=== PATIENT | female | born 1955 | race Two or more races ===

== ENCOUNTER 2023-02-26 03:53 | Inpatient (IN) | payer MEDICARE, MEDICAID ==
[~2023-02-26] VITALS: Ht 152.4 cm; Wt 76.5 kg
[2023-02-26 05:10] LABS: Basophils # (auto) 0 10 ^3/uL (0-0.2); Basophils % (auto) 0.3 % (0.0-2.0); Eosinophils # (auto) 0 10 ^3/uL (0-0.8); Eosinophils % (auto) 0.2 % (0.0-7.0); Hematocrit 42.7 % (36.0-46.0); Hemoglobin 14.4 g/dL (12.2-16.2); Lymphocytes # (auto) 0.7 10 ^3/uL (0.4-5.4); Lymphocytes % (auto) 8.2 % (10.0-50.0); Mean Corpuscular Hemoglobin 30.3 pg (28.0-32.0); Mean Corpuscular Hgb Conc. 33.7 g/dL (32.0-36.0); Mean Corpuscular Volume 89.8 fL (80.0-100.0); Monocytes # (auto) 0.1 10 ^3/uL (0-1.3); Monocytes % (auto) 0.6 % (0.0-12.0); Neutrophils # (auto) 7.9 10 ^3/uL (1.6-8.6); Neutrophils % (auto) 90.7 % (37.0-80.0); Nucleated Red Blood Cells % 0.1 %; Red Blood Cells 4.76 10^6/uL (4.0-5.20); Red Cell Distribution Width 13.2 % (11.8-14.3); White Blood Cell 8.7 10^3/uL (4.4-10.8)
[2023-02-26 05:24] LABS: Alanine Aminotransferase 29 U/L (7-40); Albumin 4.5 g/dL (3.2-4.8); Alkaline Phosphatase 82 U/L (46-116); Anion Gap 7.2 (5-15); Aspartate Aminotransferase 24 U/L (13-40); BUN/Creatinine Ratio 16.3 (10.0-20.0); Blood Urea Nitrogen 14 mg/dL (9-23); Calcium 9.6 mg/dL (8.5-10.1); Carbon Dioxide 26.8 mmol/L (20-30); Chloride 108 mmol/L (98-107); Glucose 149 mg/dL (74-106); Potassium 4.1 mmol/L (3.5-5.1); Sodium 142 mmol/L (136-145)
[2023-02-26 05:25] LABS: Total Protein 7.5 g/dL (5.7-8.2)
[2023-02-26] MEDS ORDERED: SODIUM CHLORIDE 0.9% 1,000 ML IV ONE ×2 (07:00)
[2023-02-26 07:44] LABS: Lactic Acid w/Reflex 2.2 mmol/L (0.4-2.0)
[2023-02-26] MEDS ORDERED: KETOROLAC TROMETH 30 MG/ML 1ML VIAL IV ONE (08:15)
[2023-02-26] MEDS ORDERED: MORPHINE SULFATE INJ 2 MG/ml SYRG IV PRN (10:00)
[2023-02-26] MEDS ORDERED: ONDANSETRON HCL 4 MG/2 ML VIAL IV PRN (10:00)
[2023-02-26] MEDS ORDERED: DOCUSATE SOD 100 MG CAP PO PRN (10:00)
[2023-02-26] MEDS: SODIUM CHLORIDE 0.9% 1,000 ML IV SCH ×2 (11:15→18:00)
[2023-02-26] MEDS ORDERED: MANNITOL FTV 25% 12.5 GM/50 ML 50 ML IV ONE (12:00)
[2023-02-26] MEDS: KETOROLAC TROMETH 30 MG/ML 1ML VIAL IV PRN (14:34)
[2023-02-26 17:30] VITALS: BP 89/40; PULSE 90; RESP 21; TEMP 98.5; O2SAT 98
[2023-02-26] MEDS: TAMSULOSIN HYDROCHLORIDE 0.4 MG CAP PO SCH (17:57)
[2023-02-26 18:30] VITALS: BP 89/40; PULSE 90; RESP 21; TEMP 98.5; O2SAT 98
[2023-02-26 20:00] VITALS: PULSE 92; RESP 19; O2SAT 94
[2023-02-26 22:00] VITALS: BP 95/41; PULSE 92; RESP 21; TEMP 99.8; O2SAT 94
[2023-02-27 05:00] VITALS: BP 111/55; PULSE 74; RESP 17; TEMP 98.9; O2SAT 96
[2023-02-27] MEDS: SODIUM CHLORIDE 0.9% 1,000 ML IV SCH ×3 (05:25→17:15)
[2023-02-27 06:58] LABS: Alanine Aminotransferase 21 U/L (7-40); Albumin 3.4 g/dL (3.2-4.8); Alkaline Phosphatase 68 U/L (46-116); Anion Gap 6.2 (5-15); BUN/Creatinine Ratio 22.5 (10.0-20.0); Blood Urea Nitrogen 20 mg/dL (9-23); Calcium 8.1 mg/dL (8.7-10.4); Carbon Dioxide 23.8 mmol/L (20-30); Chloride 111 mmol/L (98-107); Glucose 106 mg/dL (74-106); Potassium 4.5 mmol/L (3.5-5.1); Sodium 141 mmol/L (136-145)
[2023-02-27 06:59] LABS: Aspartate Aminotransferase 21 U/L (13-40); Bilirubin, Total 0.7 mg/dL (0.2-1.0); Total Protein 5.7 g/dL (5.7-8.2)
[2023-02-27 08:00] VITALS: BP 108/53; PULSE 72; RESP 18; TEMP 97.7; O2SAT 96
[2023-02-27 08:40] LABS: Mean Corpuscular Hemoglobin 29.6 pg (28.0-32.0)
[2023-02-27 08:43] LABS: Hematocrit 36.6 % (36.0-46.0); Hemoglobin 12.1 g/dL (12.2-16.2); Mean Corpuscular Hgb Conc. 33.1 g/dL (32.0-36.0); Mean Corpuscular Volume 89.3 fL (80.0-100.0); Red Cell Distribution Width 13.2 % (11.8-14.3)
[2023-02-27 08:57] LABS: Basophils % (manual) 0 (0.0-2.0); Blast Cells 0; Eosinophils % (manual) 0 (0-7); Metamyelocytes % 0; Myelocytes % 0; Promyelocytes % 0; Reactive Lymphocytes 0; White Blood Cell 44.3 10^3/uL (4.4-10.8)
[2023-02-27 09:00] VITALS: BP 108/53; PULSE 72; RESP 18; TEMP 97.7; O2SAT 96
[2023-02-27] MEDS: cefTRIAXone 1GM/50ML D5W 50 ML IV SCH (09:27)
[2023-02-27 11:46] LABS: Band Neutrophils % (manual) 15; Lymphocytes % (manual) 10 (10.0-50.0); Monocytes % (manual) 5 (0-12)
[2023-02-27 11:47] LABS: Platelet Estimate Adequate
[2023-02-27 13:00] VITALS: BP 103/55; PULSE 77; RESP 18; TEMP 98.5; O2SAT 96
[2023-02-27 13:40] LABS: Urine Bacteria FEW /hpf (None Seen); Urine Blood 2+ /uL (Negative); Urine Clarity HAZY (Clear); Urine Color Yellow (Yellow); Urine Mucus FEW (None Seen); Urine Protein, UAD 1+ (Negative); Urine Specific Gravity 1.019 (1.001-1.035); Urine Urobilinogen Normal (Negative); Urine WBC 123 /hpf (0 - 5); Urine pH 5.5 (5.0-8.0)
[2023-02-27 17:00] VITALS: BP 110/54; PULSE 79; RESP 16; TEMP 98.1; O2SAT 94
[2023-02-27] MEDS: TAMSULOSIN HYDROCHLORIDE 0.4 MG CAP PO SCH (17:20)
[2023-02-27] MEDS: KETOROLAC TROMETH 30 MG/ML 1ML VIAL IV PRN (17:21)
[2023-02-27 22:00] VITALS: BP 116/56; PULSE 74; RESP 16; TEMP 98; O2SAT 94
[2023-02-28] MEDS: SODIUM CHLORIDE 0.9% 1,000 ML IV SCH ×3 (03:00→20:20)
[2023-02-28 05:00] VITALS: BP 108/66; PULSE 71; RESP 19; TEMP 97.6; O2SAT 95
[2023-02-28] MEDS: KETOROLAC TROMETH 30 MG/ML 1ML VIAL IV PRN (05:37)
[2023-02-28 08:20] VITALS: BP 120/63; PULSE 69; RESP 16; TEMP 98.1
[2023-02-28 08:30] LABS: Hematocrit 35.7 % (36.0-46.0); Hemoglobin 11.8 g/dL (12.2-16.2); Mean Corpuscular Hemoglobin 29.1 pg (28.0-32.0)
[2023-02-28 08:34] LABS: Mean Corpuscular Volume 88.3 fL (80.0-100.0); Red Blood Cells 4.04 10^6/uL (4.0-5.20); Red Cell Distribution Width 13.2 % (11.8-14.3)
[2023-02-28 08:35] LABS: Calcium 8.2 mg/dL (8.5-10.1); Chloride 112 mmol/L (98-107); Potassium 4.2 mmol/L (3.5-5.1); Sodium 140 mmol/L (136-145)
[2023-02-28 08:41] LABS: Blood Urea Nitrogen 15 mg/dL (9-23); Glucose 84 mg/dL (74-106)
[2023-02-28 08:47] LABS: White Blood Cell 32.2 10^3/uL (4.4-10.8)
[2023-02-28 08:48] LABS: Basophils % (manual) 0 (0.0-2.0); Blast Cells 0; Eosinophils % (manual) 0 (0-7); Metamyelocytes % 0; Myelocytes % 0; Promyelocytes % 0; Reactive Lymphocytes 0
[2023-02-28 09:00] VITALS: BP 120/63; PULSE 69; RESP 16; TEMP 98.1; O2SAT 95
[2023-02-28] MEDS: cefTRIAXone 1GM/50ML D5W 50 ML IV SCH (09:17)
[2023-02-28 11:32] LABS: Band Neutrophils % (manual) 9; Lymphocytes % (manual) 7 (10.0-50.0); Monocytes % (manual) 1 (0-12)
[2023-02-28 11:33] LABS: Platelet Estimate Adequate
[2023-02-28 13:00] VITALS: BP 129/67; PULSE 71; RESP 18; TEMP 98; O2SAT 96
[2023-02-28 17:00] VITALS: BP 152/79; PULSE 67; RESP 20; TEMP 98.1; O2SAT 96
[2023-02-28] MEDS: TAMSULOSIN HYDROCHLORIDE 0.4 MG CAP PO SCH (18:33)
[2023-02-28 22:00] VITALS: BP 154/73; PULSE 68; RESP 18; TEMP 98.4; O2SAT 95
[2023-03-01 05:00] VITALS: BP 112/89; PULSE 64; RESP 19; TEMP 98.5; O2SAT 97
[2023-03-01] MEDS: SODIUM CHLORIDE 0.9% 1,000 ML IV SCH ×2 (05:31→15:27)
[2023-03-01 09:00] VITALS: BP 147/67; PULSE 65; RESP 14; TEMP 98.6; O2SAT 99
[2023-03-01] MEDS: cefTRIAXone 1GM/50ML D5W 50 ML IV SCH (09:28)
[2023-03-01] MEDS ORDERED: TAMS-35 PO (10:01)
[2023-03-01] MEDS ORDERED: CIPR-173 PO (10:01)
[2023-03-01 13:00] VITALS: BP 148/72; PULSE 61; RESP 16; TEMP 97.8; O2SAT 97
== END 2023-03-01 15:20 | disposition home or self-care (01) | DRG 690 ==
LOC: EDBD 03:53 → ER 03:53 → OVERFLOW 10:03 → CENTRAL 17:46
PROVIDERS: ADMIT Nurse Practitioner Family; ATTEND Family Medicine
DX: N13.6 Pyonephrosis (principal); R65.10 Systemic inflammatory response syndrome (SIRS) of non-infectious origin without acute organ dysfunction; I10 Essential (primary) hypertension; E86.0 Dehydration; K76.0 Fatty (change of) liver, not elsewhere classified; K57.30 Diverticulosis of large intestine without perforation or abscess without bleeding; K82.8 Other specified diseases of gallbladder; M81.0 Age-related osteoporosis without current pathological fracture; D72.829 Elevated white blood cell count, unspecified; Z80.0 Family history of malignant neoplasm of digestive organs; Z90.710 Acquired absence of both cervix and uterus; Z80.1 Family history of malignant neoplasm of trachea, bronchus and lung
CPT/HCPCS: 36415; 74018; 74176; 80048; 80053; 81001; 83605; 83690; 83735; 84484; 85007; 85025; 85027; 87040; 87086; 96361; 96374; 96375; 96376; G0378; J0696; J1885; J2405

== ENCOUNTER 2023-03-26 05:45 | Inpatient (IN) | payer MEDICARE, MEDICAID ==
[~2023-03-26] VITALS: Ht 152.4 cm; Wt 68.2 kg
[~2023-03-26 05:45] MED LIST: CIPR-173 PO; TAMS-35 PO
[2023-03-26] MEDS ORDERED: ACETAMINOPHEN 325 MG TAB PO ONE (06:00)
[2023-03-26] MEDS ORDERED: MORPHINE SULFATE INJ 2 MG/ml SYRG IV ONE (07:30)
[2023-03-26] MEDS ORDERED: ONDANSETRON HCL 4 MG/2 ML VIAL IV ONE (07:30)
[2023-03-26] MEDS ORDERED: SODIUM CHLORIDE 0.9% 1,000 ML IV ONE ×2 (07:30→10:15)
[2023-03-26 07:31] LABS: Alanine Aminotransferase 70 U/L (7-40); Albumin 4.7 g/dL (3.2-4.8); Alkaline Phosphatase 81 U/L (46-116); Anion Gap 8 (5-15); Aspartate Aminotransferase 70 U/L (13-40); BUN/Creatinine Ratio 15.3 (10.0-20.0); Blood Urea Nitrogen 18 mg/dL (9-23); Calcium 9.2 mg/dL (8.7-10.4); Carbon Dioxide 23 mmol/L (20-30); Chloride 104 mmol/L (98-107); Glucose 145 mg/dL (74-106); Sodium 135 mmol/L (136-145)
[2023-03-26 07:32] LABS: Bilirubin, Total 1.5 mg/dL (0.2-1.0); Lactic Acid w/Reflex 2.4 mmol/L (0.4-2.0); Total Protein 7.4 g/dL (5.7-8.2)
[2023-03-26 07:33] LABS: Urine Bacteria MANY /hpf (None Seen); Urine Blood 3+ /uL (Negative); Urine Clarity CLOUDY (Clear); Urine Color Yellow (Yellow); Urine Mucus FEW (None Seen); Urine Protein, UAD 2+ (Negative); Urine Specific Gravity 1.019 (1.001-1.035); Urine Urobilinogen Normal (Negative); Urine WBC 903 /hpf (0 - 5); Urine WBC Clumps PRESENT /hpf (None Seen); Urine pH 5.5 (5.0-8.0)
[2023-03-26] MEDS ORDERED: cefTRIAXone 1GM/50ML D5W 50 ML IV ONE (07:45)
[2023-03-26 08:00] LABS: Basophils # (auto) 0 10 ^3/uL (0-0.2); Basophils % (auto) 0.2 % (0.0-2.0); Eosinophils # (auto) 0 10 ^3/uL (0-0.8); Hemoglobin 13.6 g/dL (12.2-16.2); Lymphocytes # (auto) 0.6 10 ^3/uL (0.4-5.4); Lymphocytes % (auto) 2.8 % (10.0-50.0); Mean Corpuscular Hemoglobin 29.2 pg (28.0-32.0); Mean Corpuscular Hgb Conc. 33.1 g/dL (32.0-36.0); Mean Corpuscular Volume 88.1 fL (80.0-100.0); Monocytes # (auto) 0.5 10 ^3/uL (0-1.3); Monocytes % (auto) 2.4 % (0.0-12.0); Neutrophils % (auto) 94.6 % (37.0-80.0); Red Blood Cells 4.66 10^6/uL (4.0-5.20); White Blood Cell 20.1 10^3/uL (4.4-10.8)
[2023-03-26] MEDS ORDERED: DOCUSATE SOD 100 MG CAP PO PRN (11:15)
[2023-03-26] MEDS ORDERED: MORPHINE SULFATE INJ 2 MG/ml SYRG IV PRN (11:15)
[2023-03-26] MEDS ORDERED: HYDROcodone-ACET 5/325MG TAB PO PRN (11:15)
[2023-03-26] MEDS ORDERED: ONDANSETRON HCL 4 MG/2 ML VIAL IV PRN (11:15)
[2023-03-26] MEDS ORDERED: LOS25T PO (11:18)
[2023-03-26] MEDS ORDERED: MANNITOL FTV 25% 12.5 GM/50 ML 50 ML IV ONE (13:15)
[2023-03-26] MEDS: SODIUM CHLOR 0.9% PF (SALINE LOCK) 10ML VIAL/SYR IV SCH ×2 (14:37→22:00)
[2023-03-26 20:00] VITALS: PULSE 78; RESP 17; O2SAT 95
[2023-03-26] MEDS ORDERED: PIPERACILLIN-TAZOB 3.375GM 100 ML IV ONE (21:45)
[2023-03-27] VITALS (7 sets, daily range): BP systolic 116–135; BP diastolic 54–65; PULSE 70–76; RESP 12–20; TEMP 98.3–98.9; O2SAT 95–96
[2023-03-27] MEDS: SODIUM CHLOR 0.9% PF (SALINE LOCK) 10ML VIAL/SYR IV SCH ×3 (05:44→22:00)
[2023-03-27] MEDS: PIPERACILLIN-TAZOB 3.375GM 100 ML IV SCH ×3 (05:44→21:58)
[2023-03-27 05:46] LABS: Basophils # (auto) 0 10 ^3/uL (0-0.2); Basophils % (auto) 0.2 % (0.0-2.0); Eosinophils # (auto) 0 10 ^3/uL (0-0.8); Eosinophils % (auto) 0.1 % (0.0-7.0); Hematocrit 34.7 % (36.0-46.0); Hemoglobin 11.6 g/dL (12.2-16.2); Lymphocytes # (auto) 0.9 10 ^3/uL (0.4-5.4); Lymphocytes % (auto) 5.2 % (10.0-50.0); Mean Corpuscular Hemoglobin 29.3 pg (28.0-32.0); Mean Corpuscular Hgb Conc. 33.4 g/dL (32.0-36.0); Mean Corpuscular Volume 87.8 fL (80.0-100.0); Monocytes # (auto) 1.2 10 ^3/uL (0-1.3); Neutrophils # (auto) 14.8 10 ^3/uL (1.6-8.6); Neutrophils % (auto) 87.5 % (37.0-80.0); Red Blood Cells 3.95 10^6/uL (4.0-5.20); Red Cell Distribution Width 12.9 % (11.8-14.3); White Blood Cell 16.9 10^3/uL (4.4-10.8)
[2023-03-27 06:05] LABS: Alanine Aminotransferase 42 U/L (7-40); Albumin 3.4 g/dL (3.2-4.8); Alkaline Phosphatase 77 U/L (46-116); Anion Gap 6 (5-15); Aspartate Aminotransferase 25 U/L (13-40); BUN/Creatinine Ratio 14.1 (10.0-20.0); Blood Urea Nitrogen 11 mg/dL (9-23); Calcium 8.3 mg/dL (8.7-10.4); Carbon Dioxide 24 mmol/L (20-30); Chloride 106 mmol/L (98-107); Glucose 127 mg/dL (74-106); Potassium 3.6 mmol/L (3.5-5.1); Sodium 136 mmol/L (136-145)
[2023-03-27 06:06] LABS: Bilirubin, Total 0.8 mg/dL (0.2-1.0); Total Protein 6.1 g/dL (5.7-8.2)
[2023-03-27] MEDS ORDERED: cefTRIAXone 1GM/50ML D5W 50 ML IV SCH (09:00)
[2023-03-27] MEDS: LOSARTAN POTASSIUM 25 MG TAB PO SCH (10:41)
[2023-03-27] MEDS: TAMSULOSIN HYDROCHLORIDE 0.4 MG CAP PO SCH (10:41)
[2023-03-28 05:00] VITALS: BP 112/65; PULSE 69; RESP 18; TEMP 98.3; O2SAT 96
[2023-03-28] MEDS: PIPERACILLIN-TAZOB 3.375GM 100 ML IV SCH ×3 (05:21→21:49)
[2023-03-28 08:10] VITALS: BP 142/60; PULSE 65; RESP 18; TEMP 98.4; O2SAT 97
[2023-03-28 08:15] VITALS: BP 142/60; PULSE 65; RESP 18; TEMP 98.4
[2023-03-28] MEDS: TAMSULOSIN HYDROCHLORIDE 0.4 MG CAP PO SCH (09:57)
[2023-03-28] MEDS: SODIUM CHLOR 0.9% PF (SALINE LOCK) 10ML VIAL/SYR IV SCH ×3 (09:57→21:50)
[2023-03-28] MEDS: LOSARTAN POTASSIUM 25 MG TAB PO SCH (09:57)
[2023-03-28 11:19] LABS: Basophils # (auto) 0 10 ^3/uL (0-0.2); Basophils % (auto) 0.2 % (0.0-2.0); Eosinophils # (auto) 0.2 10 ^3/uL (0-0.8); Lymphocytes # (auto) 1.1 10 ^3/uL (0.4-5.4); Lymphocytes % (auto) 11.1 % (10.0-50.0); Mean Corpuscular Hemoglobin 29.8 pg (28.0-32.0); Mean Corpuscular Hgb Conc. 34.3 g/dL (32.0-36.0); Mean Corpuscular Volume 86.8 fL (80.0-100.0); Monocytes # (auto) 1.1 10 ^3/uL (0-1.3); Monocytes % (auto) 12.1 % (0.0-12.0); Neutrophils # (auto) 7.1 10 ^3/uL (1.6-8.6); Neutrophils % (auto) 74.6 % (37.0-80.0); Red Blood Cells 4.03 10^6/uL (4.0-5.20); Red Cell Distribution Width 12.6 % (11.8-14.3); White Blood Cell 9.5 10^3/uL (4.4-10.8)
[2023-03-28 11:44] LABS: Chloride 107 mmol/L (98-107); Potassium 3.9 mmol/L (3.5-5.1); Sodium 137 mmol/L (136-145)
[2023-03-28 11:45] LABS: Anion Gap 5 (5-15); Carbon Dioxide 25 mmol/L (20-30)
[2023-03-28 11:46] LABS: Calcium 8.6 mg/dL (8.7-10.4)
[2023-03-28 11:50] LABS: Blood Urea Nitrogen 6 mg/dL (9-23); Glucose 120 mg/dL (74-106)
[2023-03-28 13:38] VITALS: BP 136/80; PULSE 83; RESP 16; TEMP 98.8; O2SAT 96
[2023-03-28 16:10] VITALS: BP 124/70; PULSE 72; RESP 18; TEMP 99.8; O2SAT 97
[2023-03-28] MEDS: ACETAMINOPHEN 325 MG TAB PO PRN (21:49)
[2023-03-28 22:00] VITALS: BP_SYST 136; BP_SYST 140; BP_DIAS 70; BP_DIAS 71; PULSE 76; PULSE 77; RESP 16; RESP 18; TEMP 98.1; TEMP 99; O2SAT 96; O2SAT 97
[2023-03-29 05:07] VITALS: BP 151/74; PULSE 64; RESP 16; TEMP 98.2; O2SAT 98
[2023-03-29 06:12] LABS: Basophils # (auto) 0.1 10 ^3/uL (0-0.2); Basophils % (auto) 0.6 % (0.0-2.0); Eosinophils # (auto) 0.4 10 ^3/uL (0-0.8); Eosinophils % (auto) 4.8 % (0.0-7.0); Hematocrit 36.6 % (36.0-46.0); Hemoglobin 12.6 g/dL (12.2-16.2); Lymphocytes # (auto) 1.2 10 ^3/uL (0.4-5.4); Lymphocytes % (auto) 13.5 % (10.0-50.0); Mean Corpuscular Hemoglobin 29.8 pg (28.0-32.0); Mean Corpuscular Hgb Conc. 34.3 g/dL (32.0-36.0); Mean Corpuscular Volume 86.8 fL (80.0-100.0); Monocytes # (auto) 1.2 10 ^3/uL (0-1.3); Monocytes % (auto) 13.1 % (0.0-12.0); Neutrophils # (auto) 6.2 10 ^3/uL (1.6-8.6); Red Blood Cells 4.22 10^6/uL (4.0-5.20); Red Cell Distribution Width 12.7 % (11.8-14.3); White Blood Cell 9.2 10^3/uL (4.4-10.8)
[2023-03-29] MEDS: SODIUM CHLOR 0.9% PF (SALINE LOCK) 10ML VIAL/SYR IV SCH (06:13)
[2023-03-29] MEDS: PIPERACILLIN-TAZOB 3.375GM 100 ML IV SCH (06:13)
[2023-03-29 06:29] LABS: Calcium 8.9 mg/dL (8.7-10.4); Chloride 106 mmol/L (98-107); Potassium 3.9 mmol/L (3.5-5.1); Sodium 137 mmol/L (136-145)
[2023-03-29 06:30] LABS: Anion Gap 5 (5-15); Carbon Dioxide 26 mmol/L (20-30)
[2023-03-29 06:35] LABS: Blood Urea Nitrogen 8 mg/dL (9-23); Glucose 108 mg/dL (74-106)
[2023-03-29 08:48] LABS: Hepatitis B Surface Antigen Negative (Negative)
[2023-03-29 08:51] VITALS: BP 132/63; PULSE 67; RESP 16; TEMP 98.2; O2SAT 96
[2023-03-29] MEDS: ACETAMINOPHEN 325 MG TAB PO PRN (09:15)
[2023-03-29] MEDS: TAMSULOSIN HYDROCHLORIDE 0.4 MG CAP PO SCH (09:15)
[2023-03-29] MEDS: LOSARTAN POTASSIUM 25 MG TAB PO SCH (09:16)
[2023-03-29 09:45] LABS: Hepatitis C Antibody Negative (Negative)
[2023-03-29] MEDS ORDERED: LEVO500T91 PO (10:53)
[2023-03-29 11:58] VITALS: BP 132/63; PULSE 67; RESP 16; TEMP 36.8; O2SAT 96
[2023-03-29 12:35] VITALS: BP 133/70; PULSE 65; RESP 18; TEMP 98.4; O2SAT 98
== END 2023-03-29 14:05 | disposition home or self-care (01) | DRG 872 ==
LOC: ER 05:45 → OVERFLOW 11:22 → WEST WING 23:42
PROVIDERS: ADMIT Internal Medicine; ATTEND Student in an Organized Health Care Education/Training Program
DX: A41.9 Sepsis, unspecified organism (principal); E87.20 Acidosis, unspecified; N10 Acute pyelonephritis; I10 Essential (primary) hypertension; B96.20 Unspecified Escherichia coli [E. coli] as the cause of diseases classified elsewhere; M81.0 Age-related osteoporosis without current pathological fracture; Z79.899 Other long term (current) drug therapy; Z87.442 Personal history of urinary calculi; Z90.710 Acquired absence of both cervix and uterus; N20.0 Calculus of kidney
CPT/HCPCS: 36415; 71046; 74176; 76775; 80048; 80053; 81001; 83605; 85025; 86803; 87040; 87077; 87086; 87186; 87340; 96361; 96365; G0378; J0696; J2405; J2543